=== PATIENT | female | born 1995 | race Two or more races ===

== ENCOUNTER 2019-03-17 02:36 | Emergency (ER) | payer SELFPAY ==
[~2019-03-17] VITALS: Ht 157.5 cm; Wt 77.1 kg
[2019-03-17 02:51] VITALS: BP 145/82
[2019-03-17] MEDS ORDERED: IBUPROFEN 600 MG TAB PO ONE (07:45)
== END 2019-03-17 08:05 | disposition home or self-care (01) ==
LOC: ER 02:40
DX: S93.401A Sprain of unspecified ligament of right ankle, initial encounter (principal); W18.31XA Fall on same level due to stepping on an object, initial encounter; Y93.89 Activity, other specified; Y99.8 Other external cause status; Y92.89 Other specified places as the place of occurrence of the external cause
CPT/HCPCS: 73610; 73630